=== PATIENT | male | born 1985 | race Caucasian/White ===

== ENCOUNTER 2017-04-15 07:26 | Day surgery (SDC) | payer SELFPAY ==
[2017-04-15] MEDS ORDERED: Ondansetron 4 MG/2 ML SDV IVPUSH ONE (08:04)
[2017-04-15] MEDS ORDERED: Sodium Chloride 0.9% 10 ML Syringe FLUSH PRN (08:04)
[2017-04-15] MEDS ORDERED: HYDROmorphone 1 MG/ML Syringe IVPUSH ONE (08:04)
[2017-04-15] MEDS ORDERED: Famotidine 20 MG/2 ML SDV IVPUSH ONE (08:04)
--- NOTE | 2017-04-15 08:07 | EDM.PDOC ---
ED HPI GENERAL MEDICAL PROBLEM - General Chief Complaint: Abdominal Pain Stated Complaint: CHEST PAIN Time Seen by Provider: 04/15/17 07:44 Source of Information: Reports: Patient, RN Notes Reviewed - History of Present Illness INITIAL COMMENTS - FREE TEXT/NARRATIVE: 31-year-old male comes in with abdominal pain nausea. He awakened with this several hours ago. He states he felt fine yesterday and last evening. The pain is upper and lower abdomen but more on the right. There is some radiation to the right flank and back. No voiding symptomatology. Some mild chills but no obvious fever. Have an episode of diarrhea couple days ago but that has not persisted. He feels like vomiting but has not vomited. He does rate the pain at about a "heat on arrival to ED. He has had no prior abdominal surgeries. Right Upper Abdomen Pain Score (Numeric/FACES): 8 - Related Data Allergies Allergy/AdvReac Type Severity Reaction Status Date / Time No Known Allergies Allergy Verified 04/15/17 07:43 Home Meds: Home Meds . [No Known Home Meds] 04/15/17 [History] Past Medical History - Past Health History Medical/Surgical History: Denies Medical/Surgical History Social & Family History - Tobacco Use Smoking Status *Q: Current Every Day Smoker Years of Tobacco use: 10 Packs/Tins Daily: 1 - Caffeine Use Caffeine Use: Reports: Coffee, Energy Drinks - Recreational Drug Use Recreational Drug Use: No ED ROS GENERAL - Review of Systems Review Of Systems: See Below Constitutional: Reports: Chills. Denies: Fever HEENT: Reports: No Symptoms Respiratory: Denies: Shortness of Breath, Pleuritic Chest Pain Cardiovascular: Denies: Chest Pain GI/Abdominal: Reports: Abdominal Pain (Primarily right sided upper and lower abdomen), Diarrhea (Small episode of diarrhea couple days ago), Nausea. Denies : Vomiting Musculoskeletal: Reports: Other (Patient feels achy all over) Neurological: Reports: Numbness (He did have some numbness of his hands that is no better) ED EXAM, GI/ABD - Physical Exam Exam: See Below General Appearance: Alert, Anxious, Moderate Distress Eyes: Bilateral: Normal Appearance Throat/Mouth: Normal Inspection, Normal Oropharynx Head: No: Facial Swelling Neck: Supple, Full Range of Motion Respiratory/Chest: No Respiratory Distress, Lungs Clear, Normal Breath Sounds Cardiovascular: Regular Rate, Rhythm GI/Abdominal Exam: Rebound (Mild), Tender (Mild tenderness right upper quadrant moderate tenderness right lower quadrant). No: Guarding Extremities: Normal Inspection, Normal Range of Motion Neurological: Alert, Oriented, No Motor/Sensory Deficits Skin Exam: Warm, Dry, Normal Color Course - Vital Signs Last Recorded V/S: Last Vital Signs Temp 98.1 F 04/15/17 07:44 Pulse 77 04/15/17 07:44 Resp 22 H 04/15/17 07:44 BP 152/98 H 04/15/17 07:44 Pulse Ox 99 04/15/17 07:44 - Orders/Labs/Meds Orders: Active Orders 24 hr Category Date Time Status Peripheral IV Care [RC] . DIRECTED Care 04/15/17 08:04 Active Verify Patient Consent Obtain [RC] ASDIRECTED Care 04/15/17 12:33 Active Ketorolac [Toradol] Med 04/15/17 09:00 Active 30 mg IVPUSH ONETIME Sodium Chloride 0.9% [Normal Saline] 1,000 ml Med 04/15/17 08:15 Active IV ONETIME Sodium Chloride 0.9% [Saline Flush] Med 04/15/17 08:04 Active 10 ml FLUSH ASDIRECTED PRN metroNIDAZOLE/Normal Saline [Flagyl 500 MG in NS 100 ML Med 04/15/17 12:07 Active ] 500 mg Premix Bag 1 bag IV ONETIME Peripheral IV Insertion Adult [OM.PC] Stat Oth 04/15/17 08:04 Ordered Schedule Procedure [COMM] Urgent Oth 04/15/17 12:33 Ordered Medication Orders Sodium Chloride (Normal Saline) 1,000 mls @ 999 mls/hr IV ONETIME LB Last Admin: 04/15/17 08:12 Dose: 999 mls/hr Metronidazole 500 mg/ Premix 100 mls @ 100 mls/hr IV ONETIME ONE Stop: 04/15/17 13:06 Ketorolac Tromethamine (Toradol) 30 mg IVPUSH ONETIME LB Last Admin: 04/15/17 09:08 Dose: 30 mg Sodium Chloride (Saline Flush) 10 ml FLUSH ASDIRECTED PRN PRN Reason: Keep Vein Open Last Admin: 04/15/17 08:14 Dose: 10 ml Labs: Laboratory Tests 04/15/17 04/15/17 04/15/17 Range/Units 07:35 07:35 07:35 WBC 15.71 H (4.23-9.07) K/mm3 RBC 5.47 (4.63-6.08) M/mm3 Hgb 16.8 (13.7-17.5) gm/L Hct 47.1 (40.1-51.0) % MCV 86.1 (79.0-92.2) fl MCH 30.7 (25.7-32.2) pg MCHC 35.7 H (32.2-35.5) g/dl RDW Std Deviation 39.6 (35.1-43.9) fL Plt Count 180 (163-337) K/mm3 MPV 11.8 (9.4-12.3) fl Neut % (Auto) 87.6 H (34.0-67.9) % Lymph % (Auto) 4.8 L (21.8-53.1) % [place] % (Auto) 7.1 (5.3-12.2) % Eos % (Auto) 0 L (0.8-7.0) Baso % (Auto) 0.2 (0.1-1.2) % Neut # (Auto) 13.76 H (1.78-5.38) K/mm3 Lymph # (Auto) 0.76 L (1.32-3.57) K/mm3 [place] # (Auto) 1.12 H (0.30-0.82) K/mm3 Eos # (Auto) 0.00 L (0.04-0.54) K/mm3 Baso # (Auto) 0.03 (0.01-0.08) K/mm3 Manual Slide Review Abnormal smear Sodium 143 (136-145) mEq/L Potassium 3.2 L (3.5-5.1) mEq/L Chloride 107 (98-107) mEq/L Carbon Dioxide 21 (21-32) mEq/L Anion Gap 18.2 H (5-15) BUN 20 H (7-18) mg/dL Creatinine 1.2 (0.7-1.3) mg/dL Est Cr Clr Drug Dosing 97.00 mL/min Estimated GFR (MDRD) > 60 (>60) mL/min BUN/Creatinine Ratio 16.7 (14-18) Glucose 105 (74-106) mg/dL Calcium 9.7 (8.5-10.1) mg/dL Total Bilirubin 0.7 (0.2-1.0) mg/dL AST 18 (15-37) U/L ALT 26 (16-63) U/L Alkaline Phosphatase 49 (46-116) U/L C-Reactive Protein < 0.2 (<1.0) mg/dL Total Protein 7.7 (6.4-8.2) g/dl Albumin 4.4 (3.4-5.0) g/dl Globulin 3.3 gm/dL Albumin/Globulin Ratio 1.3 (1-2) Lipase 94 (73-393) U/L Meds: Medications Generic Name Dose Route Start Last Admin Trade Name Freq PRN Reason Stop Dose Admin Sodium Chloride 1,000 mls @ 999 mls/hr 04/15/17 08:15 04/15/17 08:12 Normal Saline IV 999 mls/hr ONETIME LB Administration Metronidazole 500 mg/ Premix 100 mls @ 100 mls/hr 04/15/17 12:07 IV 04/15/17 13:06 ONETIME ONE Ketorolac Tromethamine 30 mg 04/15/17 09:00 04/15/17 09:08 Toradol IVPUSH 30 mg ONETIME LB Administration Sodium Chloride 10 ml 04/15/17 08:04 04/15/17 08:14 Saline Flush FLUSH 10 ml ASDIRECTED PRN Administration Keep Vein Open Discontinued Medications Generic Name Dose Route Start Last Admin Trade Name Freq PRN Reason Stop Dose Admin Diatrizoate Meglum/Diatrizoate Sod 90 ml 04/15/17 10:22 04/15/17 11:21 Gastrografin 37% PO 04/15/17 10:23 90 ml ONETIME ONE Administration Famotidine 20 mg 04/15/17 08:04 04/15/17 08:14 Pepcid IVPUSH 04/15/17 08:05 20 mg ONETIME ONE Administration Hydromorphone HCl 0.5 mg 04/15/17 08:04 04/15/17 08:12 Dilaudid IVPUSH 04/15/17 08:05 0.5 mg ONETIME ONE Administration Hydromorphone HCl 0.5 mg 04/15/17 12:06 04/15/17 12:14 Dilaudid IVPUSH 04/15/17 12:07 0.5 mg ONETIME ONE Administration Piperacillin Sod/Tazobactam 100 mls @ 200 mls/hr 04/15/17 12:07 04/15/17 12: 18 Sod 4.5 gm/ Sodium Chloride IV 04/15/17 12:36 200 mls/hr ONETIME ONE Administration Metronidazole 500 mg/ Premix 100 mls @ 100 mls/hr 04/15/17 12:34 IV 04/15/17 13:33 ONETIME ONE Iopamidol 125 ml 04/15/17 10:22 04/15/17 11:20 Isovue-300 (61%) IVPUSH 04/15/17 10:23 125 ml ONETIME ONE Administration Ondansetron HCl 4 mg 04/15/17 08:04 04/15/17 08:12 Zofran IVPUSH 04/15/17 08:05 4 mg ONETIME ONE Administration Sodium Chloride 10 ml 04/15/17 10:22 04/15/17 11:20 Saline Flush FLUSH 04/15/17 10:23 10 ml ONETIME ONE Administration - Re-Assessments/Exams Free Text/Narrative Re-Assessment/Exam: 04/15/17 12:10. CT report has come back showing appendix is dilated with surrounding inflammatory change compatible with appendicitis. I've discussed this with Dr. Ian Jacobson who is here to see patient at this time and will be taking patient to surgery. IV Zosyn 4.5 g has been ordered. Departure - Departure Time of Disposition: 12:00 Disposition: DC/Tfer to [facility] Condition: Serious Clinical Impression: Appendicitis Qualifiers: Appendicitis type: acute appendicitis Acute appendicitis type: with localized peritonitis Qualified Code(s): K35.3 - Acute appendicitis with localized peritonitis - Discharge Information Referrals: PCP,None [Primary Care Provider] - Forms: ED Department Discharge ED Communication - Discussed Case With (1) Discussed Case With (1): Admitting Provider (Dr Pizano at about 12:00. Decision to admit to the OR for surgery at about this time) - My Orders Last 24 Hours: My Active Orders 04/15/17 08:04 Peripheral IV Care [RC] . DIRECTED Sodium Chloride 0.9% [Saline Flush] 10 ml FLUSH ASDIRECTED PRN Peripheral IV Insertion Adult [OM.PC] Stat 04/15/17 08:15 Sodium Chloride 0.9% [Normal Saline] 1,000 ml IV ONETIME 04/15/17 09:00 Ketorolac [Toradol] 30 mg IVPUSH ONETIME 04/15/17 12:07 metroNIDAZOLE/Normal Saline [Flagyl 500 MG in NS 100 ML] 500 mg Premix Bag 1 bag IV ONETIME - Assessment/Plan Last 24 Hours: My Active Orders 04/15/17 08:04 Peripheral IV Care [RC] . DIRECTED Sodium Chloride 0.9% [Saline Flush] 10 ml FLUSH ASDIRECTED PRN Peripheral IV Insertion Adult [OM.PC] Stat 04/15/17 08:15 Sodium Chloride 0.9% [Normal Saline] 1,000 ml IV ONETIME 04/15/17 09:00 Ketorolac [Toradol] 30 mg IVPUSH ONETIME 04/15/17 12:07 metroNIDAZOLE/Normal Saline [Flagyl 500 MG in NS 100 ML] 500 mg Premix Bag 1 bag IV ONETIME
[2017-04-15] MEDS ORDERED: Sodium Chloride 0.9% 1,000 ML IV SCH (08:15)
[2017-04-15] MEDS ORDERED: Ketorolac 30 MG/ML SDV IVPUSH SCH (09:00)
[2017-04-15] MEDS ORDERED: Sodium Chloride 0.9% 10 ML Syringe FLUSH ONE (10:22)
[2017-04-15] MEDS ORDERED: Iopamidol 612 MG/ML 150 ML Bottle IVPUSH ONE (10:22)
[2017-04-15] MEDS ORDERED: Diatrizoate Meglumine/Diatrizoate Sodium 37% 120 ML Bottle PO ONE (10:22)
--- NOTE | 2017-04-15 11:42 | CT ---
CT abdomen and pelvis Technique: Multiple axial sections were obtained from above the dome of the diaphragm inferiorly through the pubic symphysis. Intravenous and oral contrast was given. Findings: Appendix is dilated and shows surrounding inflammatory change compatible with appendicitis. Liver shows several small low density lesions which measure less than 1 cm which are too small to characterized by Hounsfield unit measurements but statistically are most likely due to small cysts. Spleen is slightly prominent in size at 14.7 cm. Adrenal glands show no nodule. Pancreas is unremarkable. Kidneys show symmetric contrast enhancement. Cyst is identified within the left kidney measuring 1.9 cm. Aorta shows no aneurysmal dilatation. Small retroperitoneal lymph nodes are seen which are normal. No pelvic mass or adenopathy is seen. Delayed images were also obtained through the bladder which shows contrast within the distal ureters and within the bladder. No bowel dilatation is seen. Bone windows ceilings were reviewed which shows minimal degenerative change within the spine. Impression: 1. Findings compatible with appendicitis as described above. 2. Spleen is mildly increased in size of questionable significance if patient has no correlating symptoms. 3. Presumed small cysts within the liver as well as single simple cyst within the left kidney. Diagnostic code #5
[2017-04-15] MEDS ORDERED: HYDROmorphone 0.5 MG/0.5 ML Syringe IVPUSH ONE (12:06)
[2017-04-15] MEDS ORDERED: metroNIDAZOLE/Normal Saline 500 MG in Premix Bag 1 BAG IV ONE ×2 (12:07→12:34)
[2017-04-15] MEDS ORDERED: Piperacillin/Tazobactam 4.5 GM in Sodium Chloride 0.9% 100 ML IV ONE (12:07)
[2017-04-15] MEDS ORDERED: Bupivacaine 0.5% 30 ML SDV ONE (12:38)
--- NOTE | 2017-04-15 12:47 | PCM.PREANE ---
Preanesthetic Assessment - Anesthesia/Transfusion/Family Hx Anesthesia History: No Prior Anesthesia Family History of Anesthesia Reaction: No Transfusion History: No Prior Transfusion(s) Intubation History: Unknown - Review of Systems General: Appetite (decreased due to recent divorce) Pulmonary: No Symptoms (smoker: 1/2 pack for 10 years.) Cardiovascular: No Symptoms, Palpitations (just with anxiety) Gastrointestinal: Abdominal Pain, Decreased Appetite, Diarrhea (yesterday) Neurological: No Symptoms, Tingling (this am but resolved) Other: Reports: None, Anxiety (sleeping aid patient uses marijuana twice in two weeks./Rarely drinks ETOH) - Physical Assessment NPO Status Date: 04/15/17 NPO Status Time: 11:22 (oral contrast) Pulse: 77 O2 Sat by Pulse Oximetry: 99 Respiratory Rate: 22 Blood Pressure: 152/98 Temperature: 36.7 C Vital Signs: Last Vital Signs Temp 36.7 C 04/15/17 07:44 Pulse 77 04/15/17 07:44 Resp 22 H 04/15/17 07:44 BP 152/98 H 04/15/17 07:44 Pulse Ox 99 04/15/17 07:44 Height: 1.83 m Weight: 104.326 kg ASA Class: 2E Mental Status: Alert & Oriented x3 Airway Class: Mallampati = 2 Dentition: Reports: Normal Dentition, Caries Thyro-Mental Finger Breadths: 3 Mouth Opening Finger Breadths: 3 ROM/Head Extension: Full Lungs: Clear to Auscultation, Normal Respiratory Effort Cardiovascular: Regular Rate, Regular Rhythm, No Murmurs - Lab Values: Laboratory Last Values WBC 15.71 K/mm3 (4.23-9.07) H 04/15/17 07:35 RBC 5.47 M/mm3 (4.63-6.08) 04/15/17 07:35 Hgb 16.8 gm/L (13.7-17.5) 04/15/17 07:35 Hct 47.1 % (40.1-51.0) 04/15/17 07:35 MCV 86.1 fl (79.0-92.2) 04/15/17 07:35 MCH 30.7 pg (25.7-32.2) 04/15/17 07:35 MCHC 35.7 g/dl (32.2-35.5) H 04/15/17 07:35 RDW Std Deviation 39.6 fL (35.1-43.9) 04/15/17 07:35 Plt Count 180 K/mm3 (163-337) 04/15/17 07:35 MPV 11.8 fl (9.4-12.3) 04/15/17 07:35 Neut % (Auto) 87.6 % (34.0-67.9) H 04/15/17 07:35 Lymph % (Auto) 4.8 % (21.8-53.1) L 04/15/17 07:35 [place] % (Auto) 7.1 % (5.3-12.2) 04/15/17 07:35 Eos % (Auto) 0 (0.8-7.0) L 04/15/17 07:35 Baso % (Auto) 0.2 % (0.1-1.2) 04/15/17 07:35 Neut # (Auto) 13.76 K/mm3 (1.78-5.38) H 04/15/17 07:35 Lymph # (Auto) 0.76 K/mm3 (1.32-3.57) L 04/15/17 07:35 [place] # (Auto) 1.12 K/mm3 (0.30-0.82) H 04/15/17 07:35 Eos # (Auto) 0.00 K/mm3 (0.04-0.54) L 04/15/17 07:35 Baso # (Auto) 0.03 K/mm3 (0.01-0.08) 04/15/17 07:35 Manual Slide Review Abnormal smear 04/15/17 07:35 Sodium 143 mEq/L (136-145) 04/15/17 07:35 Potassium 3.2 mEq/L (3.5-5.1) L 04/15/17 07:35 Chloride 107 mEq/L (98-107) 04/15/17 07:35 Carbon Dioxide 21 mEq/L (21-32) 04/15/17 07:35 Anion Gap 18.2 (5-15) H 04/15/17 07:35 BUN 20 mg/dL (7-18) H 04/15/17 07:35 Creatinine 1.2 mg/dL (0.7-1.3) 04/15/17 07:35 Est Cr Clr Drug Dosing 97.00 mL/min 04/15/17 07:35 Estimated GFR (MDRD) > 60 mL/min (>60) 04/15/17 07:35 BUN/Creatinine Ratio 16.7 (14-18) 04/15/17 07:35 Glucose 105 mg/dL (74-106) 04/15/17 07:35 Calcium 9.7 mg/dL (8.5-10.1) 04/15/17 07:35 Total Bilirubin 0.7 mg/dL (0.2-1.0) 04/15/17 07:35 AST 18 U/L (15-37) 04/15/17 07:35 ALT 26 U/L (16-63) 04/15/17 07:35 Alkaline Phosphatase 49 U/L (46-116) 04/15/17 07:35 C-Reactive Protein < 0.2 mg/dL (<1.0) 04/15/17 07:35 Total Protein 7.7 g/dl (6.4-8.2) 04/15/17 07:35 Albumin 4.4 g/dl (3.4-5.0) 04/15/17 07:35 Globulin 3.3 gm/dL 04/15/17 07:35 Albumin/Globulin Ratio 1.3 (1-2) 04/15/17 07:35 Lipase 94 U/L (73-393) 04/15/17 07:35 Above lab values reviewed and noted - Allergies Allergies/Adverse Reactions: Allergies Allergy/AdvReac Type Severity Reaction Status Date / Time No Known Allergies Allergy Verified 04/15/17 07:43 - Anesthesia Plan Pre-Op Medication Ordered: None - Acknowledgements Anesthesia Type Planned: General Anesthesia Pt an Appropriate Candidate for the Planned Anesthesia: Yes Alternatives and Risks of Anesthesia Discussed w Pt/Guardian: Yes Pt/Guardian Understands and Agrees with Anesthesia Plan: Yes PreAnesthesia Questionnaire - Past Health History Medical/Surgical History: Denies Medical/Surgical History - SUBSTANCE USE Smoking Status *Q: Current Every Day Smoker Tobacco Use Within Last Twelve Months: Cigarettes Recreational Drug Use History: No - HOME MEDS Home Medications: Home Meds . [No Known Home Meds] 04/15/17 [History] - CURRENT (IN HOUSE) MEDS Current Meds: Current Medications Sodium Chloride (Normal Saline) 1,000 mls @ 999 mls/hr IV ONETIME LB Last Admin: 04/15/17 08:12 Dose: 999 mls/hr Metronidazole 500 mg/ Premix 100 mls @ 100 mls/hr IV ONETIME ONE Stop: 04/15/17 13:06 Ketorolac Tromethamine (Toradol) 30 mg IVPUSH ONETIME LB Last Admin: 04/15/17 09:08 Dose: 30 mg Sodium Chloride (Saline Flush) 10 ml FLUSH ASDIRECTED PRN PRN Reason: Keep Vein Open Last Admin: 04/15/17 08:14 Dose: 10 ml Discontinued Medications Diatrizoate Meglum/Diatrizoate Sod (Gastrografin 37%) 90 ml PO ONETIME ONE Stop: 04/15/17 10:23 Last Admin: 04/15/17 11:21 Dose: 90 ml Famotidine (Pepcid) 20 mg IVPUSH ONETIME ONE Stop: 04/15/17 08:05 Last Admin: 04/15/17 08:14 Dose: 20 mg Hydromorphone HCl (Dilaudid) 0.5 mg IVPUSH ONETIME ONE Stop: 04/15/17 08:05 Last Admin: 04/15/17 08:12 Dose: 0.5 mg Hydromorphone HCl (Dilaudid) 0.5 mg IVPUSH ONETIME ONE Stop: 04/15/17 12:07 Last Admin: 04/15/17 12:14 Dose: 0.5 mg Piperacillin Sod/Tazobactam (Sod 4.5 gm/ Sodium Chloride) 100 mls @ 200 mls/hr IV ONETIME ONE Stop: 04/15/17 12:36 Last Admin: 04/15/17 12:18 Dose: 200 mls/hr Metronidazole 500 mg/ Premix 100 mls @ 100 mls/hr IV ONETIME ONE Stop: 04/15/17 13:33 Iopamidol (Isovue-300 (61%)) 125 ml IVPUSH ONETIME ONE Stop: 04/15/17 10:23 Last Admin: 04/15/17 11:20 Dose: 125 ml Ondansetron HCl (Zofran) 4 mg IVPUSH ONETIME ONE Stop: 04/15/17 08:05 Last Admin: 04/15/17 08:12 Dose: 4 mg Sodium Chloride (Saline Flush) 10 ml FLUSH ONETIME ONE Stop: 04/15/17 10:23 Last Admin: 04/15/17 11:20 Dose: 10 ml
[2017-04-15] MEDS ORDERED: Lidocaine 1% 4 ML ONE (13:13)
[2017-04-15] MEDS ORDERED: Rocuronium 50 MG/5 ML Vial ONE (13:13)
[2017-04-15] MEDS ORDERED: Midazolam 1 MG/ML 2 ML SDV ONE (13:13)
[2017-04-15] MEDS ORDERED: Ondansetron 4 MG/2 ML SDV ONE (13:13)
[2017-04-15] MEDS ORDERED: fentaNYL 250 MCG/5 ML SDV ONE (13:13)
[2017-04-15] MEDS ORDERED: Propofol 200 MG/20 ML SDV ONE (13:13)
[2017-04-15] MEDS ORDERED: Lactated Ringers 1,000 ML ONE ×2 (13:20)
[2017-04-15] MEDS ORDERED: HYDROmorphone 1 MG/ML Syringe ONE (13:41)
--- NOTE | 2017-04-15 14:26 | PCM.OPNOTE ---
- General Post-Op/Procedure Note Date of Surgery/Procedure: 04/15/17 Operative Procedure(s): lap appy Pre Op Diagnosis: acute appendicitis Post-Op Diagnosis: Same Anesthesia Technique: MAC Primary Surgeon: Ronni Jacobson EBL in mLs: 10 Complications: None Condition: Good
[2017-04-15] MEDS ORDERED: HYDROmorphone 0.5 MG/0.5 ML Syringe IVPUSH PRN (14:30)
--- NOTE | 2017-04-15 14:31 | PCM.POSTAN ---
POST ANESTHESIA ASSESSMENT - MENTAL STATUS Mental Status: Alert, Oriented - VITAL SIGNS Pulse Rate: 78 SaO2: 96 Resp Rate: 16 Blood Pressure: 142/93 Temperature: 37.2 C - RESPIRATORY Respiratory Status: Respiratory Rate WNL, Airway Patent, O2 Saturation Stable, Supplemental Oxygen - CARDIOVASCULAR CV Status: Pulse Rate WNL, Blood Pressure Stable - GASTROINTESTINAL GI Status: No Symptoms - PAIN Pain Score: 0 - POST OP HYDRATION Hydration Status: Adequate & Stable - OBSERVATIONS Free Text/Narrative:: no anesthesia complications noted
[2017-04-15] MEDS: fentaNYL 100 MCG/2 ML SDV IVPUSH PRN ×2 (14:52→15:05)
[2017-04-15] MEDS ORDERED: Acetaminophen/HYDROcodone 325-5 MG Tab PO PRN (14:54)
--- NOTE | 2017-04-15 19:45 | HP ---
DATE OF ADMISSION: 04/15/2017 HISTORY OF PRESENT ILLNESS: The patient is a 31-year-old male who woke up 4 o'clock this morning and noted pain in the right lower quadrant, which increased in intensity. Came into the emergency room and a CT scan demonstrated acute appendicitis. The patient states that he has loss of appetite, little nausea, but no vomiting. He denies any chills, fever, fainting, weakness, numbness, convulsions. The patient is a oil truck driver. SOCIAL HISTORY: He does smoke. ALLERGIES: No known allergies. CURRENT MEDICATIONS: None. PAST SURGICAL HISTORY: None. REVIEW OF SYSTEMS: No chest pain, shortness of breath, cough, hoarseness, wheezing, fainting, weakness, numbness, convulsions. FAMILY HISTORY: Mother has had thyroid cancer and father has had a colon cancer. PHYSICAL EXAMINATION: GENERAL: Reveals an alert cooperative male. VITAL SIGNS: Blood pressure is 130/80, temperature 98, pulse 85. HEENT: Eyes, sclerae white. Extraocular muscle motion normal. Oral cavity healthy mucous membrane with mouth and tongue. NECK: Supple. No nodes. No thyromegaly. Trachea midline. LUNGS: Clear. No rales, rhonchi, fremitus, dullness. HEART: Heart tones regular rate. No S3, S4, jugular venous distention. ABDOMEN: Shows tenderness in the right lower quadrant with positive Rovsing's sign. EXTREMITIES: Upper and lower extremities no angulation deformities. NEUROLOGIC: III through XII cranial nerves intact. Moves all 4 extremities. No sensorineural deficit. SKIN: Warm and dry. PSYCH: Normal. ASSESSMENT: Acute appendicitis. PLAN: For laparoscopic appendectomy. Discussed the procedure, risks, complications. He understands and he consents. MMODAL /[id number]
--- NOTE | 2017-04-18 08:01 | OR ---
DATE OF OPERATION: 04/15/2017 SURGEON: Ronni Jacobson MD PREOPERATIVE DIAGNOSIS: Acute appendicitis. POSTOPERATIVE DIAGNOSIS: Acute appendicitis. OPERATION PERFORMED: Laparoscopic appendectomy. FINDINGS: Serous appendicitis. No reaction around the peritoneum and only on the appendix. There was no pocket of pus in the pelvis or in the area around the paracolic gutter. ESTIMATED BLOOD LOSS: About 10 mL. ANESTHESIA: General anesthetic. DESCRIPTION OF PROCEDURE: The patient was taken to the operating room, placed in the supine position, connected to monitoring equipment, given a general anesthetic and intubated. Antibiotics had been given. The abdomen was clipped and then prepped with DuraPrep, draped off in a sterile fashion. 0.5% Marcaine infiltrated in the skin just below the umbilicus and the incision was made and carried down to the fascia. The fascia was incised in the midline. Abdominal cavity was entered and Gaudencio trocar was placed and secured with stay sutures. Pneumoperitoneum established and a 5 mm 30-degree camera was inserted and the abdominal cavity scanned showing the appendix in the right lower quadrant. The patient was placed in reverse Trendelenburg with leftward tilt and a window was placed at the base. The appendix was identified and was inflamed and swollen. A window was created at the base of the appendix. Endo ligator was then placed at that window and the appendix was from its attachment at the cecum. Another 2 firings of the Endo-ligator the appendix from its attachment to the mesoappendix and the appendix was placed in an endobag and removed from the abdominal cavity. Pneumoperitoneum was reestablished. A 5 mm 30-degree camera was inserted, and a small clip was used to secure 1 bleeding point. The mesentery of the area was irrigated and all sucked free. Excellent hemostasis was noted on the mesoappendix and the appendicular stump was secured. We checked in the pelvis in the right subhepatic space and no collection was noted. This completed the intraabdominal portion of the procedure. The pneumoperitoneum was removed. The fascia and the subumbilical port closed with a running 0 Vicryl suture and the skin of each port closed with subdermal 4-0 Dexon suture. Steri-Strips and sterile dressing placed and the other 2 ports were infiltrated with Marcaine. The patient tolerated the procedure and sent to recovery room in a stable condition. MMODAL /[id number]
== END 2017-04-15 14:45 | disposition home or self-care (01) ==
LOC: JD.ED 07:26 → JD.SDS 12:55
PROVIDERS: ATTEND Surgery
DX: K35.80 Unspecified acute appendicitis (principal); F17.210 Nicotine dependence, cigarettes, uncomplicated
CPT/HCPCS: 36415; 44970; 74177; 80053; 83690; 85025; 86140; 96361; 96365; 96375; 96376; 99285; A9270; J1170; J1885; J2250; J2405; J2543; J3010; J7030; J7040; J7050; J7120; Q9963; Q9967; 00840; 99284; J2704